=== PATIENT | male | born 1995 | race Two or more races ===

== ENCOUNTER → 2020-01-29 | Emergency (ER) | payer OTHER ==
[~2020-01-29] VITALS: Ht 193 cm; Wt 120.2 kg
[~2020-01-29] MED LIST: LIDOCAINE 1% HCL (LOCAL ANESTH.) INJ 20ML MDV ONE
[2020-01-29 08:46] VITALS: BP 136/85
== END | disposition home or self-care (01) ==
LOC: ER 08:28
DX: S62.024A Nondisplaced fracture of middle third of navicular [scaphoid] bone of right wrist, initial encounter for closed fracture (principal); S06.9X9A Unspecified intracranial injury with loss of consciousness of unspecified duration, initial encounter; S11.91XA Laceration without foreign body of unspecified part of neck, initial encounter; S50.01XA Contusion of right elbow, initial encounter; V43.52XA Car driver injured in collision with other type car in traffic accident, initial encounter; Y93.89 Activity, other specified; Y92.89 Other specified places as the place of occurrence of the external cause; Y99.8 Other external cause status
CPT/HCPCS: 12002; 29125; 70450; 72125; 73080; 73130; 99285; J2001